=== PATIENT | female | born 1950 | race Caucasian/White ===

== ENCOUNTER 2017-08-17 05:08 | Day surgery (SDC) | payer BC ==
[2017-07-26 14:51] VITALS: BMI 34.1
[2017-08-17 08:29] LABS: INR 1.2 (0.82-1.09); PROTHROMBIN TIME (PATIENT) 13.6 SEC (9.98-11.88)
[2017-08-17] MEDS ORDERED: PROPOFOL 20 ML ONE ×2 (09:58)
[2017-08-17] MEDS ORDERED: MIDAZOLAM HCL 2 MG/2 ML SINGLE DOSE VIAL ONE (09:59)
[2017-08-17] MEDS ORDERED: LIDOCAINE HCL 1%, 10 MG/ML (20ML VIAL) ONE (10:12)
[2017-08-17] MEDS ORDERED: ceFAZolin SODIUM 1 GM VIAL IVPB ONE (10:26)
[2017-08-17] MEDS ORDERED: ceFAZolin SODIUM 1 GM VIAL ONE (10:26)
[2017-08-17] MEDS ORDERED: LIDOCAINE HCL 1%, 10 MG/ML (20ML VIAL) INF ONE (10:32)
[2017-08-17] MEDS ORDERED: ACETAMINOPHEN 500 MG TABLET (FP) PO PRN (11:07)
[2017-08-17] MEDS ORDERED: oxyCODONE HCL 5 MG TABLET PO PRN (11:07)
[2017-08-17] MEDS ORDERED: ONDANSETRON 4 MG/2 ML VIAL IVPUSH PRN (11:07)
[2017-08-17 12:55] VITALS: BP 129/69; PULSE 69; TEMP 97.6
[2017-08-17] MEDS ORDERED: hydrALAZINE HCL 50 MG TABLET (FP) PO SCH (14:00)
--- NOTE | 2017-08-17 16:04 | OP ---
DATE OF OPERATION: 08/17/2017 PREOPERATIVE DIAGNOSIS: Right breast atypia. POSTOPERATIVE DIAGNOSIS: Right breast atypia. PROCEDURE: Right breast wire localized lumpectomy. SURGEON: Guerline De Paz M.D. ANESTHESIA: Local and IV sedation. ESTIMATED BLOOD LOSS: Minimal. COMPLICATIONS: None. This is a sterile procedure. INDICATION FOR PROCEDURE: Patient presented with a screening mammogram that noted new calcifications in the inferior right breast. Needle biopsy showed atypia. Recommendation was excision of the lesion to make sure there is no further upgrade on the lesion. The procedure was discussed with all questions answered. PROCEDURE IN DETAIL: Patient was brought to [facility], taken to breast imaging, where a wire was used to localize a clip in the inferior right breast. She was then brought up to the operating room, and after IV sedation, IV antibiotics, the right breast was prepped and draped in the usual sterile fashion. The area of the inferior right breast was anesthetized with 1% lidocaine without epinephrine. A radial incision was made in the right 6 to 7 o'clock location and the wire was used as a guide to get down to the area which was incised en bloc. Tagged with a long suture lateral, short suture superior, sent for specimen radiograph. Hemostasis was assured with electrocautery. The approximated with interrupted 2-0 Vicryl, skin approximated with interrupted 3-0 Vicryl running 4-0 Prolene. Specimen radiograph showed the clip and wire to be intact with the specimen. This was sent to pathology for permanent section. The incision was then covered with Steri-Strips as well as Tegaderm. Patient tolerated procedure well and was taken to recovery in good condition. Sandra MELISSA/[id number]
[2017-08-17] MEDS ORDERED: ATORVASTATIN CA 10 MG TABLET (FP) PO SCH (22:00)
[2017-08-18] MEDS ORDERED: PATIENT'S OWN MEDICATION (NON-FORMULARY) (Olmesartan/Hydrochlorothiazide [Benicar Hct 40-2 PO SCH (10:00)
[2017-08-18] MEDS ORDERED: CHOLECALCIFEROL (VITAMIN D3) 400 UNIT TABLET (FP) PO SCH (10:00)
[2017-08-18] MEDS ORDERED: CALCIUM (OYSTER SHELL) 500 MG TABLET (FP) PO SCH (10:00)
[2017-08-18] MEDS ORDERED: MULTIVITAMINS (DAILY MVI) TABLET (FP) PO SCH (10:00)
[2017-08-18] MEDS ORDERED: HYDROCHLOROTHIAZIDE 25 MG TABLET (FP) PO SCH (10:00)
[2017-08-18] MEDS ORDERED: VALSARTAN 160 MG TABLET (UD) PO SCH (10:00)
[2017-08-18] MEDS ORDERED: WARFARIN NA 3 MG TABLET PO SCH (18:00)
--- NOTE | 2017-08-23 09:48 | PATH ---
Surgical Pathology Report Patient Name: CRISS ROACH [facility]. Rec. #: [id number] /Age/Gender: 1950 (Age: 67) / F Account: [id number] Location: AMBULATORY SURG Taken: 08/17/2017 Received: 08/17/2017 Reported: 08/23/2017 Physicians: Guerline De Paz M.D. 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 Comment: Immunohistochemical stains performed and interpreted at [facility] show partial loss of E-cadherin in the atypical lobular hyperplasia. P-63 and Smooth muscle myosin immunohistochemical stains show retained expression in both intraductal papilloma and papillary ductal hyperplasia. Electronically Signed Rowan Hernandez M.D. Gross Description Received fresh labeled "lumpectomy right breast post-needle localization," is an 8.0 x 6.0 x 1.5 cm irregular portion of fibroadipose tissue with a needle localization wire present. There is a short suture marking the superior aspect and a long suture marking the lateral aspect of the specimen, per the surgeon. There is no skin or nipple present. The specimen is inked as follows: Superior blue; inferior green; anterior and lateral red; medial yellow; deep black. The specimen is serially sectioned from anterior to deep. Sectioning reveals multiple foci of firm white fibrous tissue. No definitive mass is identified. There is an additional 3.8 x 3.5 x 1.4 cm unoriented portion of fibroadipose tissue also received on the [employer] which appears to have detached from the specimen. The separate portion is inked blue and serially sectioned. Sectioning reveals a small focus of white fibrous tissue within the smaller specimen. Coil Strapper sections are submitted in 19 cassettes as follows: [id number] submitted fibrous tissue from anterior to deep (each with superior and inferior margins); 13-anterior margin; 14-deep margin; 15-lateral margin; 16-medial margin; 52-77-dmlcilo tissue from separately received portion of tissue. Time to formalin fixation: Approximately 73 minutes Total formalin fixation time: Approximately 7 hours 08/17/201708/17/2017
== END 2017-08-17 13:00 | disposition home or self-care (01) ==
LOC: JASUSAT 05:08
PROVIDERS: ATTEND Surgery
PROC: 0HBT0ZZ Excision of Right Breast, Open Approach (ICD-10-PCS; principal; 2017-08-17 10:00)
DX: D48.61 Neoplasm of uncertain behavior of right breast (principal)
CPT/HCPCS: 19281; 36415; 85610; 94760